=== PATIENT | male | born 1985 | race African-American/Black ===

== ENCOUNTER 2016-07-24 15:23 | Emergency (ER) | payer OTHER ==
[2016-07-24 15:50] VITALS: BP 134/93; PULSE 93; TEMP 98.2; BMI 30.2
[2016-07-24] MEDS ORDERED: DIPHTH,PERTUSS(ACELL),TET 0.5 ML DISP.SYRIN IM ONE (16:21)
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
== END 2016-07-24 16:50 | disposition home or self-care (01) ==
LOC: JER 15:23 → JERFT 15:23
PROC: 3E0234Z Introduction of Serum, Toxoid and Vaccine into Muscle, Percutaneous Approach (ICD-10-PCS; principal; 2016-07-24)
DX: S40.872A Other superficial bite of left upper arm, initial encounter (principal); Y04.1XXA Assault by human bite, initial encounter; Y93.F9 Activity, other caregiving; Y92.118 Other place in children's home and orphanage as the place of occurrence of the external cause; Y99.0 Civilian activity done for income or pay
CPT/HCPCS: 90715; 99281-25

== ENCOUNTER 2016-12-13 15:39 | Emergency (ER) | payer OTHER ==
[2016-12-13 15:46] VITALS: BP 144/98; PULSE 95; TEMP 97.8; BMI 31.1
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
== END 2016-12-13 17:03 | disposition home or self-care (01) ==
LOC: FER 15:39
PROC: 2W3HX1Z Immobilization of Left Thumb using Splint (ICD-10-PCS; principal; 2016-12-13)
DX: M79.645 Pain in left finger(s) (principal); X58.XXXA Exposure to other specified factors, initial encounter; Y93.89 Activity, other specified; Y92.159 Unspecified place in reform school as the place of occurrence of the external cause; Y99.0 Civilian activity done for income or pay
CPT/HCPCS: 73110-TC-LT; 73130-TC-LT; 99282-25

== ENCOUNTER 2017-08-06 07:40 | Emergency (ER) | payer OTHER ==
[2017-08-06 07:55] VITALS: BMI 29.1
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
[2017-08-06] MEDS ORDERED: MAG HYDROX/AL HYDROX/SIMETH -MYLANTA- ORAL SUSPENSION PO ONE (08:23)
[2017-08-06] MEDS ORDERED: RANITIDINE HCL 150 MG TABLET (FP) PO ONE (08:23)
[2017-08-06] MEDS ORDERED: MAG HYDROX/AL HYDROX/SIMETH 30 ML UNIT-DOSE CUP ONE (10:47)
[2017-08-06] MEDS ORDERED: RANITIDINE HCL 150 MG TABLET (FP) ONE (10:47)
[2017-08-06 10:53] LABS: BASO % 0.7 % (0-2.0); EOS % 0.5 % (0-4.5); HEMATOCRIT 39.7 % (35.4-49); HEMOGLOBIN 13.3 GM/dL (11.7-16.9); LYMPH % 12.9 % (8-40); MCH 29.1 pg (25.7-33.7); MCHC 33.4 g/dl (32.0-35.9); MEAN PLT VOLUME 7.5 fl (7.5-11.1); MONO % 11.6 % (3.8-10.2); NEUT % 74.3 % (42.8-82.8); PLATELET COUNT 399 K/MM3 (134-434); RBC 4.57 M/mm3 (4.00-5.60); RDW 14.5 % (11.9-15.9)
[2017-08-06 11:13] LABS: INR 1.04 (0.82-1.09); PROTHROMBIN TIME (PATIENT) 11.7 SEC (9.7-13.0)
[2017-08-06 11:23] LABS: ALBUMIN 4.2 g/dl (3.4-5.0); ANION GAP 9 (8-16); BILIRUBIN,TOTAL 0.3 mg/dL (0.2-1.0); BLOOD UREA NITROGEN 13 mg/dL (7-18); CALCIUM 8.8 mg/dL (8.5-10.1); CHLORIDE 103 mmol/L (98-107); CO2 26 mmol/L (21-32); CREATININE 1.1 mg/dL (0.7-1.3); GLUCOSE,RANDOM 90 mg/dL (74-106); LIPASE 135 U/L (73-393); MAGNESIUM 2.1 mg/dL (1.8-2.4); POTASSIUM 4.3 mmol/L (3.5-5.1); SGOT/AST 154 U/L (15-37); SGPT/ALT 157 U/L (12-78); SODIUM 138 mmol/L (136-145); TOT PROT 8.2 g/dl (6.4-8.2)
[2017-08-06 11:26] LABS: ALK PHOS 116 U/L (45-117)
[2017-08-06 15:40] VITALS: BP 141/86; PULSE 88; TEMP 98.4
--- NOTE | 2017-08-11 08:50 | EKG ---
Test Reason : Blood Pressure : / mmHG Vent. Rate : 098 BPM Atrial Rate : 098 BPM P-R Int : 138 ms QRS Dur : 098 ms QT Int : 354 ms P-R-T Axes : 050 025 033 degrees QTc Int : 451 ms POOR DATA QUALITY, INTERPRETATION MAY BE ADVERSELY AFFECTED NORMAL SINUS RHYTHM NORMAL ECG WHEN COMPARED WITH ECG OF 03-MAY-2015 17:24, NO SIGNIFICANT CHANGE WAS FOUND Confirmed by KALYAN MOULTON MD ([id number]) on 08/11/2017 8:50:35 AM Referred By: Confirmed By:KALYAN MOULTON MD
== END 2017-08-06 15:23 | disposition home or self-care (01) ==
LOC: JER 07:40
DX: R07.89 Other chest pain (principal); R94.5 Abnormal results of liver function studies; Z72.89 Other problems related to lifestyle; J45.909 Unspecified asthma, uncomplicated; F17.210 Nicotine dependence, cigarettes, uncomplicated
CPT/HCPCS: 36415; 71045-TC-FY; 71275-TC; 80053; 82550; 82553; 83690; 83735; 84484; 85025; 85379; 85610; 93005; 93010; 99283-25

== ENCOUNTER 2020-09-13 10:45 | Emergency (ER) | payer OTHER ==
[2020-09-13 10:54] VITALS: TEMP 98.6; BMI 14.5
[2020-09-13] MEDS ORDERED: ACETAMINOPHEN 1000 MG/100 ML VIAL (NON FORMULARY) IVPB ONE (11:44)
[2020-09-13] MEDS ORDERED: METOCLOPRAMIDE HCL INJECTION 10 MG/2 ML VIAL IVPUSH ONE (11:44)
[2020-09-13] MEDS ORDERED: MECLIZINE HCL 25 MG TABLET (FP) PO ONE (11:45)
[2020-09-13] MEDS ORDERED: SODIUM CHLORIDE 1,000 ML IV STA (11:45)
[2020-09-13] MEDS ORDERED: METOCLOPRAMIDE HCL INJECTION 10 MG/2 ML VIAL ONE (11:59)
[2020-09-13] MEDS ORDERED: ACETAMINOPHEN INJECTION 100 ML IVPB ONE (12:00)
[2020-09-13] MEDS ORDERED: MECLIZINE HCL 25 MG TABLET (FP) ONE (12:00)
[2020-09-13 12:35] LABS: BASO % 1.2 % (0-2.0); EOS % 0.8 % (0-4.5); HEMATOCRIT 44.7 % (35.4-49); HEMOGLOBIN 14.9 GM/dL (11.7-16.9); LYMPH % 23.5 % (8-40); MCH 28.7 pg (25.7-33.7); MCHC 33.4 g/dl (32.0-35.9); MEAN CELL VOLUME 86.1 fl (80-96); MEAN PLT VOLUME 7.5 fl (7.5-11.1); MONO % 6.4 % (3.8-10.2); NEUT % 68.1 % (42.8-82.8); PLATELET COUNT 508 10^3/uL (134-434); RDW 13.5 % (11.9-15.9); WHITE BLOOD COUNT 6.3 K/mm3 (4.0-10.0)
[2020-09-13 12:49] LABS: CALCIUM 9.8 mg/dL (8.5-10.1)
[2020-09-13 12:50] LABS: ALBUMIN 4.6 g/dl (3.4-5.0); BLOOD UREA NITROGEN 10.3 mg/dL (7-18)
[2020-09-13 12:53] LABS: CREATININE 1.2 mg/dL (0.55-1.3)
[2020-09-13 12:55] LABS: BILIRUBIN,TOTAL 0.3 mg/dL (0.2-1); TOT PROT 8.9 g/dl (6.4-8.2)
[2020-09-13 13:07] VITALS: BP 160/98; PULSE 97
[2020-09-13 13:28] LABS: PH,URINE 5.5 (5.0-8.0); URINE APPEARANCE CLEAR; URINE BILIRUBIN NEGATIVE (NEGATIVE); URINE COLOR YELLOW; URINE GLUCOSE (UA) NEGATIVE (NEGATIVE); URINE KETONE 1+ (NEGATIVE); URINE LEUK ESTERASE NEGATIVE (NEGATIVE); URINE NITRITE NEGATIVE (NEGATIVE); URINE PROTEIN NEGATIVE (NEGATIVE); URINE UROBILINOGEN 0.2 mg/dL (0.2-1.0)
[2020-09-13] MEDS ORDERED: LORazepam 2 MG/ML SDV VIAL IVPUSH ONE (13:41)
[2020-09-13] MEDS ORDERED: LORazepam 2 MG/ML SDV VIAL ONE (14:35)
== END 2020-09-13 15:45 | disposition home or self-care (01) ==
LOC: JER 10:45
PROC: 3E0333Z Introduction of Anti-inflammatory into Peripheral Vein, Percutaneous Approach (ICD-10-PCS; principal; 2020-09-13)
PROC: 3E033NZ Introduction of Analgesics, Hypnotics, Sedatives into Peripheral Vein, Percutaneous Approach (ICD-10-PCS; 2020-09-13)
PROC: 3E033GC Introduction of Other Therapeutic Substance into Peripheral Vein, Percutaneous Approach (ICD-10-PCS; 2020-09-13)
PROC: 3E0337Z Introduction of Electrolytic and Water Balance Substance into Peripheral Vein, Percutaneous Approach (ICD-10-PCS; 2020-09-13)
DX: R42 Dizziness and giddiness (principal)
CPT/HCPCS: 36415; 70450-TC; 80053; 81003; 85025; 87086; 99284-25; J0131